=== PATIENT | male | born 1945 | race Caucasian/White ===

== ENCOUNTER → 2018-04-03 10:20 | Outpatient (CLI) | payer MEDICARE, MEDICAID, SELFPAY ==
--- NOTE | 2018-04-03 | DI.MRI.S_ITS ---
PROCEDURE: MR CERVICAL SPINE WO CON INDICATIONS: NUMBNESS AND TINGLING BILATERAL UPPER EXTREMITIES TECHNIQUE: Noncontrast sagittal T1 spin echo and T2 fast spin echo, sagittal STIR, foraminal oblique sagittal T2 fast spin echo, and axial gradient echo or T2 fast spin echo through the cervical spine. COMPARISON: None. FINDINGS: Image quality: Excellent. Alignment and Curvature: There is grade 1 anterolisthesis of C3 on C4. Bone Marrow: Degenerative endplate signal changes scattered in cervical spine. Spinal Cord: There is mild decreased spinal cord caliber at C3-C4 where increased T2 signal is present, consistent with myelopathy/ myelomalacia. No cerebellar tonsillar herniation. Paraspinous Soft Tissues: No paravertebral masses. Prevertebral soft tissues are normal in thickness. C2-C3: Preserved disc height. Mild disc desiccation. There is mild posterior disc bulge. Uncovertebral hypertrophy, left with the right. The central canal is patent. Mild bilateral foraminal stenosis. C3-C4: Preserved disc height. Moderate disc desiccation. There is broad posterior disc bulge and posterior central disc protrusion. Uncovertebral hypertrophy bilaterally. There is bilateral facet arthropathy. The central canal is severely narrowed. There is ggwcncwm-zb-ptkhcm bilateral foraminal stenosis. C4-C5: Severe loss of disc height and disc desiccation. There is broad posterior disc bulge and small posterior disc osteophyte complex. Uncovertebral hypertrophy. Moderate left and mild right facet arthropathy. The central canal is enyj-va-jqpxkwvbms narrowed. There is dduxnhzc-su-ljvbix bilateral foraminal stenosis. C5-C6: There is moderate loss of disc height and disc desiccation. There is broad posterior disc bulge and small posterior disc osteophyte complex. Uncovertebral hypertrophy. Moderate bilateral facet arthropathy. The central canal is bkhs-jy-omsreplmre narrowed. There is moderate right and mild left foraminal stenosis. C6-C7: Severe loss of disc height and disc desiccation. There is broad posterior disc bulge and disc osteophyte complex. Uncovertebral hypertrophy. Mild bilateral facet arthropathy. The central canal is fhzi-mg-qrxbcwinbt narrowed. There is mild foraminal stenosis bilaterally. C7-T1: Normal appearance. IMPRESSION: 1. Multilevel degenerative disc disease and facet arthropathy as described. 2. Severe central canal stenosis at C3-C4. 3. Multilevel foraminal stenosis as described, wofbcftw-kz-dfomlf at C3-C4 bilaterally, and mild to moderate foraminal stenoses at several other levels. 4. Mild decreased cord caliber at C3-C4 where increased cord T2 signal is noted, consistent with myelopathy/myelomalacia. Dictated by: Juan Jose Black M.D. on 04/03/2018 at 14:52 Transcribed by: KENTRELL on 04/03/2018 at 15:00 Approved by: Juan Jose Black M.D. on 04/03/2018 at 17:56
== END ==
PROVIDERS: Visit Provider Specialist
DX: M50.01 Cervical disc disorder with myelopathy, high cervical region (principal); M48.02 Spinal stenosis, cervical region; M47.12 Other spondylosis with myelopathy, cervical region; M99.71 Connective tissue and disc stenosis of intervertebral foramina of cervical region
CPT/HCPCS: 72141